=== PATIENT | male | born 1945 ===

== ENCOUNTER → 2018-10-18 21:03 | Outpatient (REF) | payer OTHER, MEDICARE, SELFPAY ==
[2018-10-18 22:23] LABS: Add Manual Diff / Slide Review NO; Alanine Aminotransferase 43 IU/L (21-72); Albumin 4.5 g/dL (3.5-5.0); Albumin Globulin Ratio 1.5 (1.0-2.8); Alkaline Phosphatase 74 U/L (38-126); Aspartate Aminotransferase 32 IU/L (17-59); Basophils Absolute Auto 100 /uL (0-100); Basophils Percent Auto 2.1 % (0-2); Bilirubin Total 0.9 mg/dL (0.2-1.3); Blood Urea Nitrogen 21 mg/dL (9-20); Calcium 9.7 mg/dL (8.4-10.2); Carbon Dioxide 26 mmol/L (22-32); Chloride 102 mmol/L (98-107); Cholesterol 231 mg/dL (140-199); Eosinophils Absolute Auto 500 /uL (0-450); Eosinophils Percent Auto 9.3 % (2-4); Estimated Glomerular Filt Rate > 60.0 mL/min (>60); Glucose 106 mg/dL (80-110); HDL Cholesterol 42 mg/dL (40-60); HEMOLYSIS < 15 (0-50); Hematocrit 40.9 % (41-53); Hemoglobin 13.6 g/dL (13.5-17.5); LDL Cholesterol Calculated 129 mg/dL (<100); Lymphocytes Absolute Auto 1400 /uL (1100-4500); Lymphocytes Percent Auto 25.6 % (25-40); Mean Corpuscular HGB Conc 33.3 % (30-36); Mean Corpuscular Hemoglobin 31.5 PG (26-34); Mean Corpuscular Volume 94.6 fL (80-100); Monocytes Absolute Auto 700 /uL (0-900); Monocytes Percent Auto 12.2 % (3-14); Neutrophils Absolute Auto 2800 /uL (1500-7000); Neutrophils Percent Auto 50.8 % (50-75); Platelet Count 230 X10^3/uL (150-400); Red Blood Cell Count 4.33 X10^6/uL (4.5-5.9); Red Cell Distribution Width 14.1 % (11.6-14.8); Sodium 138 mmol/L (137-145); Total Protein 7.5 g/dL (6.3-8.2); Triglycerides 301 mg/dL (35-150); White Blood Cell Count 5.5 X10^3/uL (4.5-11.0)
[2018-10-21 14:00] LABS: PSA Total < 0.10 ng/mL (< 4.01)
[2018-10-22 17:29] LABS: Estrogen 80.8 pg/mL (60-190)
== END ==
LOC: LAB 21:03
PROVIDERS: Visit Provider Family Medicine
DX: E29.1 Testicular hypofunction (principal); F52.21 Male erectile disorder; I10 Essential (primary) hypertension; R53.83 Other fatigue; G35 Multiple sclerosis
CPT/HCPCS: 36415; 80053; 80061; 82672; 84153; 84154; 84270; 84402; 84403; 85025